=== PATIENT | male | born 1985 | race Caucasian/White ===

== ENCOUNTER 2020-02-24 02:10 | Inpatient (IN) | payer SELFPAY ==
[~2020-02-24] VITALS: Ht 175.3 cm; Wt 132.0 kg
[2020-02-24] VITALS (12 sets, daily range): BP systolic 98–159; BP diastolic 54–131
[~2020-02-24 02:10] MED LIST: RT-ALBUTEROL SULF 2.5 MG/3 ML PRE-MIX VIAL ONE; RT-ALBUTEROL/IPRATROPIUM 3 ML (DUONEB) VIAL ONE
[2020-02-24] MEDS ORDERED: NS IV 500 ML 500 ML IV ONE (02:13)
[2020-02-24] MEDS ORDERED: methylPREDNISolone 125 MG (Solu-MEDROL) VIAL IV STA (02:13)
[2020-02-24] MEDS ORDERED: RT-ALBUTEROL SULF 2.5 MG/3 ML PRE-MIX VIAL INH STA (02:13)
[2020-02-24] MEDS ORDERED: RT-ALBUTEROL/IPRATROPIUM 3 ML (DUONEB) VIAL INH ONE (02:15)
[2020-02-24 02:20] LABS: ABG BASE EXCESS 1.7 MMOL/L (-2.5-2.5); ABG OXYGEN SATURATION 57 % (94-100); ABG PCO2 61 MMHG (35-45); ABG PO2 42 MMHG (79-93); ABG TCO2 29.4 MMOL/L (21.0-31.0)
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
[2020-02-24 02:24] LABS: BASOPHILS # (AUTO) 0.1 10^3/uL (0.0-0.1); BASOPHILS % (AUTO) 1 % (0-10); EOSINOPHILS # (AUTO) 0.2 10^3/uL (0.0-0.3); EOSINOPHILS % (AUTO) 3 % (0-10); HEMATOCRIT 47 % (40-54); LYMPHOCYTES # (AUTO) 2.1 X 10^3 (1.0-4.0); LYMPHOCYTES % (AUTO) 24 % (12-44); MEAN CORPUSCULAR HEMOGLOBIN 30 PG (25-34); MEAN CORPUSCULAR HGB CONC 34 G/DL (32-36); MEAN CORPUSCULAR VOLUME 87 FL (80-99); MEAN PLATELET VOLUME 8.3 FL (7.4-10.4); MONOCYTES % (AUTO) 11 % (0-12); NEUTROPHILS # (AUTO) 5.6 X 10^3 (1.8-7.8); NEUTROPHILS % (AUTO) 62 % (42-75); PLATELET COUNT 368 10^3/uL (130-400); RED CELL DISTRIBUTION WIDTH 13.3 % (10.0-14.5)
[2020-02-24 02:26] LABS: ABG PH 7.28 (7.37-7.43); ALLENS TEST POSITIVE; INSPIRED O2 3; PATIENT TEMP 37.7; VENTILATOR NO
[2020-02-24 02:34] LABS: ALBUMIN 4.9 GM/DL (3.2-4.5); CHLORIDE 104 MMOL/L (98-107); POTASSIUM 3.8 MMOL/L (3.6-5.0); SODIUM 141 MMOL/L (135-145)
[2020-02-24 02:35] LABS: CALCIUM 9.6 MG/DL (8.5-10.1)
[2020-02-24 02:36] LABS: GLUCOSE 114 MG/DL (70-105); TOTAL PROTEIN 8.4 GM/DL (6.4-8.2)
[2020-02-24 02:36] LABS: ABG BASE EXCESS -0.2 MMOL/L (-2.5-2.5); ABG OXYGEN SATURATION 87 % (94-100); ABG PCO2 48 MMHG (35-45); ABG PO2 50 MMHG (79-93); ABG TCO2 26.2 MMOL/L (21.0-31.0)
[2020-02-24 02:37] LABS: CARBON DIOXIDE 23 MMOL/L (21-32)
[2020-02-24 02:38] LABS: BILIRUBIN,TOTAL 0.3 MG/DL (0.1-1.0)
[2020-02-24 02:39] LABS: ABG PH 7.34 (7.37-7.43); ALLENS TEST POSITIVE; INSPIRED O2 3; PATIENT TEMP 37.7; VENTILATOR NO
[2020-02-24 02:40] LABS: ALKALINE PHOSPHATASE 71 U/L (40-136); CREATININE SERUM 1.03 MG/DL (0.60-1.30); GFR ESTIMATED > 60
[2020-02-24 02:41] LABS: BUN/CREATININE RATIO 17
[2020-02-24 02:43] LABS: ALANINE AMINOTRANSFERASE 79 U/L (0-55); MAGNESIUM 2.4 MG/DL (1.6-2.4)
[2020-02-24] MEDS: MAGNESIUM 1 GM/100 ML IVPB 100 ML IV SCH ×2 (02:56→02:57)
--- OUTSIDE RECORDS SUMMARY | 2020-02-24 03:21 | XMS REPORT | Continuity of Care Document ---
Demographics Preferred Language Unknown Marital Status Unknown Hindu Affiliation Unknown Race Unknown Ethnic Group Unknown Author Organization Unknown Address Unknown Phone Unavailable Allergies There is no data. Medications There is no data. Problems There is no data. Procedures There is no data. Results Test Result Range Arterial blood gas measurement - 0 02:14 Blood pCO2 61 mm[Hg] 35-45 Blood pO2 42 mm[Hg] 79-93 Arterial blood bicarbonate measurement (moles/volume) 28 mmol/L 23-27 Arterial blood base excess by calculation 1.7 mmol /L -2.5-2.5 Arterial blood oxygen saturation measurement 57 % 94-100 * Inhaled oxygen flow rate 3 NRG Arterial blood pH measurement with patient temperature correction 7.28 7.37-7.43 Arterial blood carbon dioxide, total measurement (mole s/volume) 29.4 mmol/L 21.0-31.0 Body site LEFT RADIAL NRG Assessment of wrist artery patency prior to arterial p uncture POSITIVE NRG Setting of ventilation mode NO NR G Measurement of body temperature 37.7 NRG Complete blood count (CBC) with automate d white blood cell (WBC) differential - 02/24/20 02:15 Blood leukocytes automated count (number/volume) 9.0 10*3/uL 4.3-11.0 Blood erythrocytes automated count (number/volume) 5.39 10*6/uL 4.35-5.85 Venous blood hemoglobin measurement (mass/volume) 16.0 g/dL 13.3-17.7 Blood hematocrit (volume fraction) 47 % 40-54 Automated erythrocyte mean corpuscular volume 87 [ foz_us] 80-99 Automated erythrocyte mean corpuscular h emoglobin (mass per erythrocyte) 30 pg 25-34 Automated erythrocyte mean corpuscular h emoglobin concentration measurement (mass/volume) 34 g/dL 32-36 Automated erythrocyte distribution width ratio 13. 3 % 10.0- 14.5 Automated blood platelet count (count/volume) 368 10*3/uL 130-400 Automated blood platelet mean volume measurement 8.3 [foz_us] 7.4-10.4 Automated blood neutrophils/100 leukocytes 62 % 42-75 Automated blood lymphocytes/100 leukocytes 24 % 12-44 Blood monocytes/100 leukocytes 11 % 0-12 Automated blood eosinophils/100 leukocytes 3 % 0-10 Automated blood basophils/100 leukocytes 1 % 0-10 Blood neutrophils automated count (number/volume) 5.6 10*3 1.8-7.8 Blood lymphocytes automated count (number/volume) 2.1 10*3 1.0-4.0 Blood monocytes automated count (number/volume) 1. 0 10*3 0.0-1.0 Automated eosinophil count 0.2 10*3/uL 0 .0-0.3 Automated blood basophil count (count/volume) 0.1 10*3/uL 0.0-0.1 Comprehensive metabolic panel - 02/24/20 02:15 Serum or plasma sodium measurement (moles/volume) 141 mmol/L 135-145 Serum or plasma potassium measurement (moles/volume) 3.8 mmol/L 3.6-5.0 Serum or plasma chloride measurement (moles/volume) 104 mmol/L 98-107 Carbon dioxide 23 mmol/L 21-32 Serum or plasma anion gap determination (moles/volume) 14 mmol/L 5-14 Serum or plasma urea nitrogen measurement (mass/volume ) 17 mg/dL 7-18 Serum or plasma creatinine measurement (mass/volume) 1.03 mg/dL 0.60-1.30 Serum or plasma urea nitrogen/creatinine mass ratio 17 NRG Serum or plasma creatinine measurement w ith calculation of estimated glomerular filtration rate > NRG Serum or plasma glucose measurement (mass/volume) 114 mg/dL 70-105 Serum or plasma calcium measurement (mass/volume) 9.6 mg/dL 8.5-10.1 Serum or plasma total bilirubin measurement (mass/volu me) 0.3 mg/dL 0.1-1.0 Serum or plasma alkaline phosphatase elyssa surement (enzymatic activity/volume) 71 U/L 40-136 Serum or plasma aspartate aminotransfera se measurement (enzymatic activity/volume) 40 U/L 5-34 Serum or plasma alanine aminotransferase measurement (enzymatic activity/volume) 79 U/L 0-55 Serum or plasma protein measurement (mass/volume) 8.4 g/dL 6.4-8.2 Serum or plasma albumin measurement (mass/volume) 4.9 g/dL 3.2-4.5 Magnesium - 02/24/20 02:15 Magnesium 2.4 mg/dL 1.6-2.4 Serum or plasma C reactive protein measu rement (mass/volume) - 02/24/20 02:15 Serum or plasma C reactive protein measurement (mass/v olume) 0.73 mg/dL 0.00-0.50 Arterial blood gas measurement - 0 02:30 Blood pCO2 48 mm[Hg] 35-45 Blood pO2 50 mm[Hg] 79-93 Arterial blood bicarbonate measurement (moles/volume) 25 mmol/L 23-27 Arterial blood base excess by calculation -0.2 mmo l/L -2.5-2.5 Arterial blood oxygen saturation measurement 87 % 94-100 * Inhaled oxygen flow rate 3 NRG Arterial blood pH measurement with patient temperature correction 7.34 7.37-7.43 Arterial blood carbon dioxide, total measurement (mole s/volume) 26.2 mmol/L 21.0-31.0 Body site RIGHT RADIAL NRG Assessment of wrist artery patency prior to arterial p uncture POSITIVE NRG Setting of ventilation mode NO NR G Measurement of body temperature 37.7 NRG Encounters ACCT No. Visit Date/Time Discharge Status Pt. Type Provider Facility Loc./Unit Complaint [id number] 02/24/2020 02:27:00 Document Registration
[2020-02-24] MEDS ORDERED: ONDANSETRON 4 MG/2 ML (SDV) Z0FRAN IV PRN (04:45)
[2020-02-24] MEDS ORDERED: ACETAMINOPHEN 500 MG TAB (TYLENOL) PO PRN (04:45)
[2020-02-24] MEDS ORDERED: LORazepam 0.5 MG (ATIVAN) TABLET PO PRN (04:45)
--- NOTE | 2020-02-24 04:57 | NUR ---
BONG Q4 AND PRN; IS QID OR WHILE AWAKE. INITIATE 02 TO KEEP SATS ABOVE 94%. RT TO REASSESS OR REEVALUATE IN 72 HOURS OR NEEDED. Addendum: 02/24/20 at 0457 by DEE ROGERS RT Amended: Links added.
[2020-02-24] MEDS ORDERED: RT-ALBUTEROL/IPRATROPIUM 3 ML (DUONEB) VIAL INH PRN (05:00)
[2020-02-24 06:06] LABS: ABG BASE EXCESS 1.1 MMOL/L (-2.5-2.5); ABG OXYGEN SATURATION 89 % (94-100); ABG PCO2 44 MMHG (35-45); ABG PH 7.38 (7.37-7.43); ABG PO2 62 MMHG (79-93); ABG TCO2 27.1 MMOL/L (21.0-31.0); ALLENS TEST POSITIVE; INSPIRED O2 32
[2020-02-24 06:07] LABS: PATIENT TEMP 36.7; VENTILATOR NO
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
--- NOTE | 2020-02-24 06:48 | Diagnostic Imaging Report ---
EXAMINATION: Chest radiograph, portable AP view. DATE: 02/24/2020 2:38 AM hours. INDICATION: 34-year-old male, cough, shortness of breath. COMPARISON: None. FINDINGS: Heart size and mediastinal contours are unremarkable. There is no identified pneumothorax. There is no large pleural effusion. There is no identified focal airspace consolidation. There are anchors overlying the left glenoid. IMPRESSION: 1. No identified acute cardiopulmonary abnormality. Dictated by: Dictated on workstation # [id number]
[2020-02-24] MEDS: RT-ALBUTEROL/IPRATROPIUM 3 ML (DUONEB) VIAL INH SCH ×5 (06:56→21:58)
[2020-02-24] MEDS: LACTATED RINGERS 1,000 ML IV SCH ×3 (07:40→15:44)
[2020-02-24] MEDS: methylPREDNISolone 40 MG/ML (Solu-MEDROL) VIAL IV SCH ×3 (07:40→20:35)
[2020-02-24 10:15] LABS: AMPHETAMINE SCREEN, URINE NEGATIVE (NEGATIVE); BARBITURATE SCREEN URINE NEGATIVE (NEGATIVE); BENZODIAZEPINES SCREEN URINE NEGATIVE (NEGATIVE); CANNABINOID SCREEN, URINE NEGATIVE (NEGATIVE); COCAINE SCREEN URINE NEGATIVE (NEGATIVE); METHADONE STAT NEGATIVE (NEGATIVE); METHAMPHETAMINE SCREEN URINE S NEGATIVE (NEGATIVE); OPIATE SCREEN URINE NEGATIVE (NEGATIVE); OXYCODONE STAT NEGATIVE (NEGATIVE); PROPOXYPHENE STAT NEGATIVE (NEGATIVE); TRICYCLIC ANTIDEPRESSANTS SCRE NEGATIVE (NEGATIVE)
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
--- NOTE | 2020-02-24 14:50 | NUR ---
THIS NURSE NOTIFIED DR HAWLEY OF PT CONDITION, PT IS ON 1 LITER NC WITH 02 SATURATIONS 94-96%. PT LUNGS SOUNDS ARE LESS WHEEZY AND PT STATES HE FEELS BETTER. DR HAWLEY SAID PT CAN GO TO FOURTH FLOOR. THIS NURSE NOTIFIED EXETER. Addendum: 02/24/20 at 1740 by STEPHAN BENJAMIN RN THIS NURSE NOTIFIED DR HAWLEY OF PT CONDITION, PT IS ON 1 LITER NC WITH 02 SATURATIONS 94-96%. PT LUNGS SOUNDS ARE LESS WHEEZY AND PT STATES HE FEELS BETTER. DR HAWLEY SAID PT CAN GO TO FOURTH FLOOR. THIS NURSE NOTIFIED EXETER SUP.
--- NOTE | 2020-02-24 17:20 | NUR ---
THIS NURSE CALLED REPORT TO [facility] VALENCIA ON FOURTH FLOOR. PT TAKEN DOWN VIA WHEELCHAIR WITH BELONGINGS.
--- NOTE | 2020-02-24 17:23 | NUR ---
THIS NURSE CLARIFIED WITH DR HAWLEY IF PT NEEDED IV FLUIDS. PT IS DRINKING ADEQUATELY. ORDER GIVEN TO DC IV FLUIDS AND TELE. THIS NURSE UPDATED [facility] VALENC[facility] ON FOURTH FLOOR.
--- NOTE | 2020-02-24 17:30 | NUR ---
RECEIVED FROM ICU, ALERT, DENIES PAIN OR SOB, WHEEZE HEARD UPON AUSCULTATION, O2 ON 1 LITER PER NC, IV SITE WITHOUT REDNESS OR SWELLING, ORIENTED TO ROOM, CALL LIGHT WITHIN REACH
[2020-02-24] MEDS ORDERED: RT-BUDESONIDE NEBS 0.5 MG/2ML (PULMICORT) AMP INH SCH (21:00)
[2020-02-25] VITALS: BP 143/74
[2020-02-25] MEDS: RT-ALBUTEROL/IPRATROPIUM 3 ML (DUONEB) VIAL INH SCH ×3 (02:34→10:22)
[2020-02-25] MEDS: methylPREDNISolone 40 MG/ML (Solu-MEDROL) VIAL IV SCH (02:37)
[2020-02-25 04:35] VITALS: BP 123/77
--- NOTE | 2020-02-25 05:54 | Pulmonary Progress Note ---
Subjective Time Seen by a Provider: 05:52 Subjective/Events-last exam Pt appears to be doing better. Sepsis Event Evaluation Height, Weight, BMI Height: '" Weight: lbs. oz. kg; 42.82 BMI Method: Exam Exam Vital Signs Date Time Temp Pulse Resp B/P (MAP) Pulse Ox O2 Delivery O2 Flow Rate FiO2 02/25/20 04:35 37.0 96 18 123/77 (92) 96 Nasal Cannula 1.00 02/25/20 02:34 91 Room Air 02/25/20 00:00 36.9 97 18 143/74 (97) 94 Nasal Cannula 1.00 02/24/20 21:59 92 Room Air 02/24/20 20:30 92 Room Air 02/24/20 20:00 36.9 102 20 155/76 (102) 93 Room Air 02/24/20 18:51 92 Room Air 02/24/20 17:33 36.4 99 19 159/85 (109) 94 Room Air 02/24/20 17:30 97 Nasal Cannula 1.00 02/24/20 16:00 96 19 153/89 (110) 93 NIV CPAP 32.00 02/24/20 16:00 36.9 02/24/20 16:00 97 Nasal Cannula 1.00 02/24/20 14:46 94 Room Air 02/24/20 12:55 87 02/24/20 12:00 108 20 153/93 (113) 96 NIV CPAP 32.00 02/24/20 12:00 37.1 02/24/20 12:00 97 Nasal Cannula 1.00 02/24/20 10:30 Nasal Cannula 1.00 02/24/20 10:09 97 Nasal Cannula 1.00 02/24/20 09:00 97 Nasal Cannula 3.00 02/24/20 08:00 105 26 143/131 (135) 7 NIV CPAP 32.00 02/24/20 08:00 96 Nasal Cannula 3.00 02/24/20 07:45 36.4 02/24/20 06:56 99 Nasal Cannula 2.00 02/24/20 06:34 96 I & O 02/25/20 07:00 Intake Total 3680 ml Output Total 1100 ml Balance 2580 ml Height & Weight Height: '" Weight: lbs. oz. kg; 42.82 BMI Method: General Appearance: No Apparent Distress, Obese HEENT: PERRL/EOMI, Moist Mucous Membranes; No Scleral Icterus (L), No Scleral Icterus (R) Neck: Supple Respiratory: No Accessory Muscle Use, No Respiratory Distress, Wheezing Cardiovascular: Regular Rate, Rhythm, No Murmur Capillary Refill: Less Than 3 Seconds Extremity: No Calf Tenderness, No Pedal Edema Neurologic/Psychiatric: Alert, Oriented x3, Normal Mood/Affect; No Aphasia, No Facial Droop Skin: Normal Color, Warm/Dry Results Lab Laboratory Tests 02/24/20 02:15 Assessment/Plan Assessment/Plan Asthma AE -Steroids -- change to prednisone taper -Add advair -DuoNebs Allergic rhinitis -Add claritin and singulair Denies tobacco use Acute respiratory failure -Monitor HIRO ROGERS DO February 25, 2020 05:53
[2020-02-25 08:00] VITALS: BP 137/93
[2020-02-25] MEDS ORDERED: ADVAIR HFA 115/21 MCG INHALER 8 GM IH SCH (08:00)
[2020-02-25] MEDS ORDERED: LORATADINE (CLARITIN) 10 MG TAB PO SCH (09:00)
[2020-02-25] MEDS ORDERED: predniSONE 10 MG TAB PO SCH (09:00)
[2020-02-25] MEDS ORDERED: PRED10TA22 PO (10:14)
[2020-02-25] MEDS ORDERED: FLUT1BLS3 IH (10:14)
[2020-02-25] MEDS ORDERED: RT-ALBUINH IH (10:17)
[2020-02-25 10:30] VITALS: BP 137/93
--- NOTE | 2020-02-25 11:02 | NUR ---
I WENT TO THE PT ROOM @ 1000 AND HE WAS ON THE PHONE- I TOLD HIM I WOULD STOP BACK IN A FEW MINUTES. WHEN I CAME BACK THE DISCHARGE ORDER WERE FINAL AND HE WAS READY TO LEAVE. THE MED REC WAS NOT COMPLETED AT THIS TIME DUE TO DISCHARGE
--- NOTE | 2020-02-25 12:15 | NUR ---
PT'S MEDS WERE NOT TRANSMITTED USUAL. PT CALLED TO SAY THE PRESCRIPTIONS WERE NOT THERE. I CALLED [facility] AND LEFT MESSAGE FOR THE 2 THAT WERE NOT TRANSMITTEED. ALSO REQUESTED THAT THEY NOT FILL [facility] PT LIV[facility] IN [facility] AND WILL PICK THEM UP THERE.
--- NOTE | 2020-02-25 12:53 | Discharge Summary ---
Discharge Summary Hospital Course Was the Problem List Reviewed?: Yes Problems/Dx: (1) Asthma with status asthmaticus in adult Status: Acute Qualifiers: Qualified Codes: J45.52 - Severe persistent asthma with status asthmaticus (2) Acute respiratory failure with hypoxia and hypercarbia Status: Acute (3) Elevated blood pressure reading Status: Acute (4) Obesity Status: Chronic Qualifiers: Hospital Course Date of Admission: February 24, 2020 at 03:05 Admission Diagnosis : status asthmaticus Family Physician/Provider: Leola,Local Physician Date of Discharge: 02/25/20 Discharge Diagnosis: status asthmaticus Hospital Course: Tenzin Larsen is a 34-year-old male with history of asthma who presented with shortness of breath and was admitted with status asthmaticus. He was acutely hypoxic but did not require intubation. He was treated with steroids and breathing treatments and improved. He had been out of his Trelegy for about a week. He follows with a basting marker in [facility]. He was discharged with a course of steroids. He should follow-up with his basting marker as scheduled. He plans to obtain his Trelegy as soon as possible. Labs and Pending Lab Test: Home Meds Active Proair Hfa (Albuterol Sulfate) 1 Puff Puff 2 Puff IH Q4H PRN 30 Days 1 PUFF = 90 MCG Prednisone 10 Mg Tab.ds.pk 10 Mg PO DAILY Take 6 tabs(60mg)daily,decrease by 1 tab(10MG)daily. Trelegy Ellipta 100-62.5-25 (Fluticasone/Umeclidin/Vilanter) 1 Each Blst.w.dev 1 Each IH DAILY 30 Days Assessment/Pt Instructions take medications as prescribed. Complete your course of steroids. Resume Trelegy. Follow-up with your basting marker. Discharge Planning: <30 minutes discharge planning Discharge Instructions Discharge Diet: No Restrictions Activity as Tolerated: Yes Discharge Physical Examination Vital Signs Vital Signs Date Time Temp Pulse Resp B/P (MAP) Pulse Ox O2 Delivery O2 Flow Rate FiO2 02/25/20 10:30 36.7 101 20 137/93 93 Room Air 1.00 02/24/20 04:31 32 General Appearance: No Apparent Distress, Obese Respiratory: Lungs Clear, Normal Breath Sounds, No Respiratory Distress Cardiovascular: Regular Rate, Rhythm, No Edema, No Murmur Gastrointestinal: Normal Bowel Sounds, Non Tender, Soft Extremity: Normal Inspection, Non Tender, No Pedal Edema Skin: Normal Color, Warm/Dry Neurologic/Psychiatric: Alert, Oriented x3, No Motor/Sensory Deficits, Normal Mood/Affect Allergies: Coded Allergies: No Known Drug Allergies (Unverified , 02/24/20) Discharge Summary Date of Admission February 24, 2020 at 03:05 Date of Discharge February 25, 2020 at 11:10 Discharge Date: February 25, 2020 Discharge Time: 11:10 Admission Diagnosis Status Asthmaticus Discharge Diagnosis (1) Asthma with status asthmaticus in adult Status: Acute Qualifiers: Qualified Codes: J45.52 - Severe persistent asthma with status asthmaticus (2) Acute respiratory failure with hypoxia and hypercarbia Status: Acute (3) Elevated blood pressure reading Status: Acute (4) Obesity Status: Chronic Qualifiers: Clinical Quality Measures DVT/VTE Risk/Contraindication: Risk Factor Score Per Nursin RFS Level Per Nursing on Admit: 1=Low/No VTE PPX MILAN DALE MD February 25, 2020 12:53
[2020-02-25] MEDS ORDERED: MONTELUKAST 10 MG (SINGULAIR) TAB PO SCH (21:00)
== END 2020-02-25 11:10 | disposition home or self-care (01) | DRG 190 ==
LOC: ER 02:13 → ICU 03:05 → 4TH 17:30
PROVIDERS: ADMIT Family Medicine; ATTEND Family Medicine
DX: J44.1 Chronic obstructive pulmonary disease with (acute) exacerbation (principal); J45.902 Unspecified asthma with status asthmaticus; J96.01 Acute respiratory failure with hypoxia; J96.02 Acute respiratory failure with hypercapnia; E66.9 Obesity, unspecified; Z68.41 Body mass index [BMI] 40.0-44.9, adult
CPT/HCPCS: 36415; 71045; 80053; 80306; 82805; 83735; 84100; 85025; 86141; 94640; 94760